=== PATIENT | female | born 1980 | race Caucasian/White ===

== ENCOUNTER 2019-05-18 08:12 | Emergency (ER) | payer MEDICAID ==
[2019-05-18] MEDS ORDERED: Ativan 2 MG/1 ML VIAL IV ONE (08:32)
[2019-05-18] MEDS ORDERED: Sodium Chloride 0.9% 1000 ML 1,000 ML IV STA (08:32)
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
[2019-05-18 08:58] LABS: BASOPHIL % 0.1 % (0.0-0.4); Basophil (Absolute #) 0.01 (0-0.4); Eosinophil % 0.8 % (0.00-5.0); Eosinophil (Absolute #) 0.08 (0-0.5); Granulocyte Absolute (ANC) 8.01 (1.4-6.9); Granulocytes % 83.4 % (36.0-66.0); Hemoglobin 13.9 gm/dl (12.0-16.0); Lymphocyte (Absolute #) 1.14 (1.0-4.6); Lymphocytes % 11.9 % (24.0-44.0); Mean Cell Volume 96.3 fl (78-100); Mean Corpuscular Hemoglobin 31.9 pg (26-32); Mean Corpuscular Hgb Concent. 33.1 g/dl (32-36); Mean Platelet Volume 10.9 fl (6-9.5); Monocyte (Absolute #) 0.36 (0.0-1.3); Monocytes % 3.8 % (0.0-12.0); Platelet Count 246 K/mm3 (150-450); Red Blood Count 4.36 M/mm3 (4.1-5.4); Red Cell Distribution Width 12.6 % (11.5-14.0); White Blood Count 9.6 K/mm3 (4.0-10.5)
[2019-05-18 09:13] LABS: ALBUMIN 4.8 g/dL (3.5-5.0); ALKALINE PHOSPHATASE 63 U/L (38-126); ANION GAP 16.1 MEQ/L (5-15); BLOOD UREA NITROGEN 21 mg/dL (7-17); CHLORIDE 102 mmol/L (98-107); Carbon Dioxide 25 mmol/L (22-30); Creatinine 1 0.63 mg/dL (0.52-1.04); Glucose 100 mg/dL (74-106); Potassium 3.8 mmol/L (3.5-5.1); SGOT/AST 21 U/L (14-36); SGPT/ALT 18 U/L (0-35); SODIUM 140 mmol/L (137-145); Total Protein 8.3 g/dL (6.3-8.2)
[2019-05-18 09:15] LABS: Amourphous Crystal MODERATE /HPF (NEGATIVE); Appearance CLOUDY (CLEAR); Bacteria FEW /HPF (NEGATIVE); Bilirubin NEGATIVE (NEGATIVE); Blood NEGATIVE Ery/ul (0-5); Epithelial Cells RARE /HPF (FEW); Glucose NEGATIVE (NEGATIVE); Ketones NEGATIVE (NEGATIVE); Leukocyte Esterase NEGATIVE (NEGATIVE); Mucus SLIGHT /HPF (NEGATIVE); Nitrite NEGATIVE (NEGATIVE); Protein,Urine Dip NEGATIVE (Negative); Specific Gravity 1.021 (1.005-1.025); Urobilinogen NEGATIVE mg/dL (0-1)
[2019-05-18 09:16] LABS: ACETAMINOPHEN < 10 ug/ml (10-30); ETHYL ALCOHOL < 10 mg/dL (0-10); SALICYLATE < 1.0 mg/dL (2-20)
[2019-05-18] MEDS ORDERED: Ativan 2 MG/1 ML VIAL ONE (09:20)
[2019-05-18 09:24] LABS: Barbiturate,Urine NEGATIVE (NEGATIVE); Benzodiazepine,Urine POSITIVE (NEGATIVE); Cocaine,Urine NEGATIVE (NEGATIVE); Methadone,Urine NEGATIVE (NEGATIVE); Opiate,Urine POSITIVE (NEGATIVE); PCP,Urine NEGATIVE (NEGATIVE); THC,Urine NEGATIVE (NEGATIVE)
[2019-05-18 09:47] LABS: Amphetamine,Urine POSITIVE (NEGATIVE)
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
[2019-05-18 13:09] VITALS: BP 98/68; PULSE 90; O2SAT 100
== END 2019-05-18 13:34 | disposition short-term general hospital (02) ==
LOC: ED 08:12
DX: F19.20 Other psychoactive substance dependence, uncomplicated (principal); S16.1XXA Strain of muscle, fascia and tendon at neck level, initial encounter; V89.2XXA Person injured in unspecified motor-vehicle accident, traffic, initial encounter; N39.0 Urinary tract infection, site not specified
CPT/HCPCS: 36415; 72040; 80053; 80307; 81001; 81025; 85025; 87086; 93005; 96372; 99285; G0481; J2060; G0480

== ENCOUNTER 2022-01-20 16:00 | Emergency (ER) | payer MEDICAID ==
[2022-01-20 16:17] VITALS: BP 117/81; PULSE 77; O2SAT 98
[2022-01-20] MEDS ORDERED: TORAdol 30 mg Injection IM ONE (16:17)
[2022-01-20] MEDS ORDERED: TORAdol 30 mg Injection ONE (16:19)
--- NOTE | 2022-01-20 16:22 | ERPHSYRPT ---
- History of Present Illness Time Seen by Provider: 01/20/22 16:18 Source: patient Exam Limitations: no limitations Patient Subjective Stated Complaint: L shoulder pain that radiates through R side Triage Nursing Assessment: pt to ED c/o L shoulder pain x 2 days. pt states she was resting in bed when pain began. states pain originates deep into shoulder and radiates through R side. rates 7/10. full ROM however does have pain. Physician History: Left shoulder pain that radiates through R side L shoulder pain x 2 days. pt states she was resting in bed when pain began. states pain originates deep into shoulder and radiates through R side. rates 7/10. full ROM however does have pain. Occurred: yesterday Method of Injury: unknown Quality: constant Severity of Pain-Max: moderate Severity of Pain-Current: moderate Extremities Pain Location: shoulder: left Modifying Factors: Improves With: nothing Associated Symptoms: none Allergies/Adverse Reactions: No Known Drug Allergies Allergy (Verified 01/20/22 16:09) Home Medications: Buprenorphine HCl/Naloxone HCl [Suboxone 12 mg-3 mg Sl Film] 2 each SL DAILY 01/20/22 [History] Hx Tetanus, Diphtheria Vaccination/Date Given: Yes Hx Influenza Vaccination/Date Given: Yes Hx Pneumococcal Vaccination/Date Given: No Immunizations Up to Date: Yes Travel Risk - International Travel Have you traveled outside of the country in past 3 weeks: No - Coronavirus Screening Are you exhibiting any of the following symptoms?: No Close contact with a COVID-19 positive Pt in past 14-21 Days: No - Vaccine Status Have you recieved a Covid-19 vaccination: No - Review of Systems Constitutional: No Symptoms Eyes: No Symptoms Ears, Nose, & Throat: No Symptoms Respiratory: No Symptoms Cardiac: Chest Pain Abdominal/Gastrointestinal: No Symptoms Genitourinary Symptoms: No Symptoms Musculoskeletal: Joint Pain (left shoulder pain), No Fall Skin: No Symptoms Neurological: No Symptoms Psychological: No Symptoms - Past Medical History Pertinent Past Medical History: Yes Psycho-Social History: Anxiety, Other - Past Surgical History Past Surgical History: Yes Female Surgical History: Other Other Surgical History: laparotomy - Social History Smoking Status: Former smoker How long have you smoked: 20 years Exposure to second hand smoke: Yes Drug Use: none Patient Lives Alone: No - Female History Hx Now: No - Nursing Vital Signs Nursing Vital Signs: Initial Vital Signs Temperature 97.7 F 01/20/22 16:10 Pulse Rate 77 01/20/22 16:10 Respiratory Rate 20 01/20/22 16:10 Blood Pressure 117/81 01/20/22 16:10 O2 Sat by Pulse Oximetry 98 01/20/22 16:10 Pain Scale Pain Intensity 7 - Physical Exam General Appearance: no apparent distress Eyes, Ears, Nose, Throat Exam: normal ENT inspection Neck Exam: normal inspection Cardiovascular/Respiratory Exam: chest non-tender Abdominal Exam: non-tender Back Exam: normal inspection Shoulder Exam: normal inspection, normal ROM, pain, soft tissue tenderness, No no evidence of injury, No deformity, No ecchymosis SpO2: 98 - Course Nursing assessment & vital signs reviewed: Yes - Radiology Exams Shoulder X-ray Interpretation: Reviewed by me, Negative, No Fracture, No Subluxation Ordered Tests: Active Orders 24 hr Category Date Time Status EKG-ER Only STAT Care 01/20/22 16:16 Active SHOULDER Stat Exams 01/20/22 16:17 Taken Medication Summary Discontinued Medications Generic Name Dose Route Start Last Admin Trade Name Nieves PRN Reason Stop Dose Admin Ketorolac Tromethamine 60 mg 01/20/22 16:17 01/20/22 16:22 Ketorolac Tromethamine 30 Mg/Ml Inj IM 01/20/22 16:18 60 mg STAT ONE Administration Ketorolac Tromethamine Confirm 01/20/22 16:19 Ketorolac Tromethamine 30 Mg/Ml Inj Administered 01/20/22 16:20 Dose 60 mg .ROUTE .STK-MED ONE - Progress Progress: improved Counseled pt/family regarding: diagnosis, need for follow-up, rad results - Departure Departure Disposition: Home Clinical Impression: Left shoulder strain Qualifiers: Encounter type: initial encounter Qualified Code(s): S46.912A - Strain of unspecified muscle, fascia and tendon at shoulder and upper arm level, left arm, initial encounter Condition: Stable Critical Care Time: No Referrals: DOCTOR,NO FAMILY [Primary Care Provider] - Follow up/PCP as directed Instructions: Shoulder Sprain (DC) Additional Instructions: Discharge/Care Plan MANASCOOPER Kita was seen on 01/20/22 in the Emergency Room. The patient was counseled regarding Diagnosis,Lab results, Imaging studies, need for follow up and when to return to the Emergency Room. Prescriptions given: Discharge Note I have spoken with the patient and/or caregivers. I have explained the patient's condition, diagnosis and treatment plan based on the information available to me at this time. I have answered the patient's and/or caregiver's questions and addressed any concerns. The patient and/or caregivers have as good understanding of the patient's diagnosis, condition and treatment plan as can be expected at this point. The vital signs have been stable. The patient's condition is stable and appropriate for discharge from the emergency department. The patient will pursue further outpatient evaluation with the primary care physician or other designated or consulting physician as outlined in the discharge instructions. The patient and/or caregivers are agreeable to this plan of care and follow-up instructions have been explained in detail. The patient and/or caregivers have received these instruction. The patient/and or caregivers are aware that any significant change in condition or worsening of symptoms should prompt an immediate return to this or the closest emergency department or call 911. MANASCOOPER Kita was seen on 01/20/22 n the Emergency Room. At that time you were treated for an emergent condition, during your visit Laboratory, Radiology and/or other procedures may have been ordered. It is very important that you follow-up with your Primary Care Physician NO FAMILY DOCTOR within the next 24- 48 hours to review your Emergency Room visit and the final results of testing that was ordered. Some test results such as Urine Cultures, Blood Cultures, and other cultures if ordered will not be finalized for 24-48 hours. If you do not have a Primary Care Provider please call the medical records department at [phone] ext [phone] to obtain a copy of your results or you may sign into our patient portal to obtain these results by visiting us @ [email or web address] and completing the following steps: 1. Click on the Patient Portal link 2. Click the Patient Self Enrollment Link to complete the enrollment form and entering your 3. Once the enrollment form is completed you will receive an email with a temporary ID and password at the email address you provided. 4. Next choose a user name and password. Your user name must be at least 4 characters long and your password must be at least 4 characters long. 5. Choose a security question from the list and provide your answer to the question. If you already have signed into the Health Portal you may access your Health Care Information 03/06 by the following steps: 1. Login to our website @ [email or web address] 2. Enter your original user name and password. FAQS The [facility] Health Portal is an online tool that contains your Lab Results, Radiology Reports, Visit History, Discharge Instructions and Health Summary Lab and Radiology Results will not be available for 72 hours on the portal. The Portal is a secure site, passwords are encryted and URLs are re-written so they cannot be copied and pasted. You and authorized family members are the only ones who can access your Portal. Also there is a timeout feature that protects your information if you leave the Portal page open. If you have technical difficulty please use the Contact Us link on the page this will allow you to submit any questions you have regarding the Portal or you may contact the Medical Record Department at [phone] ext [phone].
--- NOTE | 2022-01-20 20:12 | XRAY ---
Indication: Pain 2 days. No known injury. Comparison: None 3 view left shoulder obtained. No bony, articular, or soft tissue abnormalities.
== END 2022-01-20 16:47 | disposition home or self-care (01) ==
LOC: ED 16:00
DX: S46.912A Strain of unspecified muscle, fascia and tendon at shoulder and upper arm level, left arm, initial encounter (principal); Z79.891 Long term (current) use of opiate analgesic
CPT/HCPCS: 73030; 93005; 96372; 99284; J1885

== ENCOUNTER 2022-04-23 09:29 | Emergency (ER) | payer OTHER ==
--- NOTE | 2022-04-23 09:34 | ERPHSYRPT ---
- History of Present Illness Time Seen by Provider: 04/23/22 09:34 Source: patient Exam Limitations: no limitations Physician History: This 42-year-old white female who has a tender, fractured right lower molar. There is significant tenderness present. She can see her dentist for 2 weeks. She has not had a fever. Timing/Duration: abrupt onset ENT Location: dental Prearrival Treatment: over the counter meds Modifying Factors: Improves With: nothing Associated Symptoms: tooth pain Allergies/Adverse Reactions: No Known Drug Allergies Allergy (Verified 04/23/22 09:45) Home Medications: Buprenorphine HCl/Naloxone HCl [Buprenorphin-Naloxon 8-2 mg Sl] 3 each SL QAM 04/23/22 [History] Hx Tetanus, Diphtheria Vaccination/Date Given: Yes Hx Influenza Vaccination/Date Given: Yes Hx Pneumococcal Vaccination/Date Given: No Travel Risk - International Travel Have you traveled outside of the country in past 3 weeks: No - Coronavirus Screening Are you exhibiting any of the following symptoms?: No Close contact with a COVID-19 positive Pt in past 14-21 Days: No - Vaccine Status Have you recieved a Covid-19 vaccination: No - Review of Systems Constitutional: No Symptoms Eyes: No Symptoms Ears, Nose, & Throat: Other Respiratory: No Symptoms Cardiac: No Symptoms Abdominal/Gastrointestinal: No Symptoms Genitourinary Symptoms: No Symptoms Musculoskeletal: No Symptoms Skin: No Symptoms Neurological: No Symptoms Psychological: No Symptoms Endocrine: No Symptoms Hematologic/Lymphatic: No Symptoms Immunological/Allergic: No Symptoms All Other Systems: Reviewed and Negative - Past Medical History Pertinent Past Medical History: Yes Psycho-Social History: Anxiety, Other - Past Surgical History Past Surgical History: Yes Female Surgical History: Other Other Surgical History: laparotomy - Social History Smoking Status: Former smoker How long have you smoked: 20 years Exposure to second hand smoke: Yes Drug Use: none Patient Lives Alone: No - Nursing Vital Signs Nursing Vital Signs: Initial Vital Signs Temperature 98.3 F 04/23/22 09:37 Pulse Rate 83 04/23/22 09:37 Blood Pressure 113/55 04/23/22 09:37 O2 Sat by Pulse Oximetry 96 04/23/22 09:37 Pain Scale Pain Intensity 8 - Physical Exam General Appearance: no apparent distress, alert, anxiety Eye Exam: bilateral eye: normal inspection, PERRL, EOMI Ear Exam: bilateral ear: auricle normal Nasal Exam: normal inspection Throat Exam: dental tenderness (Right lower molar fracture with tenderness) Neck Exam: normal inspection, non-tender, supple, full range of motion Cardiovascular/Respiratory Exam: chest non-tender, no respiratory distress Abdominal Exam: non-tender Neurologic Exam: alert, oriented x 3, cooperative, 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, normal mood/affect, nml cerebellar function, nml station & gait, sensation nml Skin Exam: normal color, warm, dry SpO2 Interpretation: normal O2 Delivery: Room Air Ordered Tests: Medication Summary Generic Name Dose Route Start Last Admin Trade Name Freq PRN Reason Stop Dose Admin Amoxicillin 500 mg 04/23/22 10:09 Amoxicillin Trihydrate 500 Mg Capsule PO 04/23/22 10:10 STAT ONE - Progress Progress: unchanged Counseled pt/family regarding: diagnosis, need for follow-up - Departure Departure Disposition: Home Clinical Impression: Pain, dental, Fractured tooth Condition: Stable Critical Care Time: No Referrals: DOCTOR,NO FAMILY [Primary Care Provider] - Follow up/PCP as directed Additional Instructions: Add Tylenol for pain control. Follow-up with a dentist for definitive care. Take your antibiotics as prescribed. Prescriptions: Amoxicillin 500 mg Cap [Amoxil 500 mg] 500 mg PO TID #30 cap Naproxen 500 mg [Naprosyn 500 MG] 500 mg PO BID #10 tablet
[2022-04-23] MEDS ORDERED: AMOXIL 500 MG PO ONE (10:09)
[2022-04-23] MEDS ORDERED: AMOXIL 500 MG ONE (10:12)
[2022-04-23 10:20] VITALS: BP 110/54; PULSE 76; O2SAT 95
== END 2022-04-23 10:20 | disposition home or self-care (01) ==
LOC: ED 09:29
DX: S02.5XXA Fracture of tooth (traumatic), initial encounter for closed fracture (principal); Z79.891 Long term (current) use of opiate analgesic; Z28.310 Unvaccinated for COVID-19
CPT/HCPCS: 99283; A9270-GY

== ENCOUNTER 2022-06-07 00:03 | Emergency (ER) | payer OTHER ==
[2022-06-07] MEDS ORDERED: Zofran 4 MG/2 ML VIAL IV ONE (00:25)
--- NOTE | 2022-06-07 00:30 | ERPHSYRPT ---
- History of Present Illness Historian: patient Exam Limitations: no limitations Patient Subjective Stated Complaint: pt states she has been having chest tightness tonight. states pain started in her back between her shoulder blades earlier tonight. rates 8/10 at this time Triage Nursing Assessment: pt alert and oriented, answers questions approp. pt ambulatory with steady giat noted. respirations nonlabored. skin pink warm and dry. frequent belching noted. Physician History: 42 yo wf w 90min h/o intrascapular pain which transitioned into chest pain. Pain described as "tightness" and 5/10. She states that she is dyspneic wo N/V/diaphoresis. Nothing makes the pain better or worse. Pt vapes but denies CAD-OH/HTN/DM/Hyperlipidemia. She had CV19 2 wks ago. Timing/Duration: other (90min) Activities at Onset: rest Quality: tightness Location: substernal, back Chest Pain Radiation: back Severity of Pain-Max: moderate Severity of Pain-Current: moderate Modifying Factors: Improves With: nothing Associated Symptoms: shortness of breath, back pain, No nausea, No vomiting, No palpitations, No heartburn, No abdominal pain, No cough, No hurts to breathe, No diaphoresis, No chills, No fever, No fatigue, No weakness, No swelling/lump in chest, No syncope, No rash, No headache, No dizziness, No edema Prior Chest Pain/Cardiac Workup: no prior chest pain Nitro Today/Relief: no nitro taken today Aspirin Treatment Today: no aspirin today Allergies/Adverse Reactions: No Known Drug Allergies Allergy (Verified 06/07/22 00:21) Home Medications: Buprenorphine HCl/Naloxone HCl [Buprenorphin-Naloxon 8-2 mg Sl] 3 each SL QAM 04/23/22 [History] Hx Tetanus, Diphtheria Vaccination/Date Given: Yes Hx Influenza Vaccination/Date Given: Yes Hx Pneumococcal Vaccination/Date Given: No Immunizations Up to Date: Yes Travel Risk - International Travel Have you traveled outside of the country in past 3 weeks: No - Coronavirus Screening Are you exhibiting any of the following symptoms?: No Close contact with a COVID-19 positive Pt in past 14-21 Days: No - Vaccine Status Have you recieved a Covid-19 vaccination: No - Review of Systems Constitutional: No Symptoms Eyes: No Symptoms Ears, Nose, & Throat: No Symptoms Respiratory: No Symptoms, Dyspnea Cardiac: No Symptoms, Chest Pain Abdominal/Gastrointestinal: No Symptoms Genitourinary Symptoms: No Symptoms Musculoskeletal: No Symptoms Skin: No Symptoms Neurological: No Symptoms Psychological: No Symptoms Endocrine: No Symptoms Hematologic/Lymphatic: No Symptoms Immunological/Allergic: No Symptoms - Past Medical History Pertinent Past Medical History: Yes Psycho-Social History: Anxiety, Other - Past Surgical History Past Surgical History: Yes Female Surgical History: Other Other Surgical History: laparotomy - Social History Smoking Status: Former smoker How long have you smoked: 20 years Exposure to second hand smoke: Yes Drug Use: marijuana Patient Lives Alone: No Significant Family History: no pertinent family hx - Female History Hx Last Menstrual Period: 3 weeks Hx Now: No - Nursing Vital Signs Nursing Vital Signs: Initial Vital Signs Temperature 97.2 F 06/07/22 00:04 Pulse Rate 100 H 06/07/22 00:04 Respiratory Rate 18 06/07/22 00:04 Blood Pressure 120/72 06/07/22 00:04 O2 Sat by Pulse Oximetry 100 06/07/22 00:04 Pain Scale Pain Intensity 2 Borderline tachycardic - Physical Exam General Appearance: no apparent distress Eye Exam: PERRL/EOMI, eyes nml inspection Ears, Nose, Throat Exam: normal ENT inspection, TMs normal, pharynx normal, moist mucous membranes Neck Exam: normal inspection, non-tender, supple, full range of motion, No meningismus, No mass, No Brudzinski, No Kernig's, No carotid bruit Respiratory Exam: normal breath sounds, lungs clear, airway intact, No chest tenderness, No respiratory distress Cardiovascular Exam: regular rate/rhythm, normal heart sounds, normal peripheral pulses, capillary refill <2 sec, No murmur Gastrointestinal/Abdomen Exam: soft, normal bowel sounds, No tenderness Back Exam: normal inspection, normal range of motion, No CVA tenderness, No vertebral tenderness Extremity Exam: normal inspection, normal range of motion Neurologic Exam: alert, oriented x 3, cooperative, 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, normal mood/affect, nml cerebellar function, nml station & gait, sensation nml, No motor deficits, No sensory deficit Skin Exam: normal color, warm, dry, No rash Lymphatic Exam: No adenopathy SpO2 Interpretation: normal SpO2: 100 O2 Delivery: Room Air - Course Nursing assessment & vital signs reviewed: Yes EKG Interpreted by Me: RATE (NSR/Rate88/Normal Qt-QTc/No acute ST changes) - Radiology Exams Chest X-ray Interpretation: Interpreted by me (CXR nad) Ordered Tests: Active Orders 24 hr Category Date Time Status EKG-ER Only STAT Care 06/07/22 00:16 Completed CHEST 1 VIEW (PORTABLE) Stat Exams 06/07/22 00:16 Taken AMYLASE Stat Lab 06/07/22 00:55 Completed CBC W DIFF Stat Lab 06/07/22 00:55 Completed CMP Stat Lab 06/07/22 00:55 Completed D-DIMER QUANTITATIVE Stat Lab 06/07/22 00:55 Completed LIPASE Stat Lab 06/07/22 00:55 Completed PROTIME WITH INR Stat Lab 06/07/22 00:55 Completed PTT Stat Lab 06/07/22 00:55 Completed TROPONIN Q3H Lab 06/07/22 00:55 Completed TROPONIN Q3H Lab 06/07/22 02:43 Completed Medication Summary Discontinued Medications Generic Name Dose Route Start Last Admin Trade Name Nieves PRN Reason Stop Dose Admin Fentanyl Citrate 100 mcg 06/07/22 00:24 06/07/22 00:57 Fentanyl Citrate 100 Mcg/2 Ml* Vial IV 06/07/22 00:25 Not Given STAT ONE Fentanyl Citrate Confirm 06/07/22 00:49 Fentanyl Citrate 100 Mcg/2 Ml* Vial Administered 06/07/22 00:50 Dose 100 mcg .ROUTE .STK-MED ONE Ketorolac Tromethamine 15 mg 06/07/22 01:27 06/07/22 01:29 Ketorolac Tromethamine 30 Mg/Ml Inj IV 06/07/22 01:28 15 mg STAT ONE Administration Ketorolac Tromethamine Confirm 06/07/22 01:29 Ketorolac Tromethamine 30 Mg/Ml Inj Administered 06/07/22 01:30 Dose 30 mg .ROUTE .STK-MED ONE Lorazepam 1 mg 06/07/22 01:39 06/07/22 01:43 Lorazepam 1 Mg Tablet PO 06/07/22 01:40 1 mg STAT ONE Administration Lorazepam Confirm 06/07/22 01:41 Lorazepam 1 Mg Tablet Administered 06/07/22 01:42 Dose 1 mg .ROUTE .STK-MED ONE Ondansetron HCl 4 mg 06/07/22 00:25 06/07/22 00:52 Ondansetron Hcl 4 Mg/2 Ml Vial IV 06/07/22 00:26 4 mg STAT ONE Administration Ondansetron HCl Confirm 06/07/22 00:49 Ondansetron Hcl 4 Mg/2 Ml Vial Administered 06/07/22 00:50 Dose 4 mg .ROUTE .STK-MED ONE Lab/Rad Data: Laboratory Result Diagrams 06/07/22 00:55 06/07/22 00:55 Laboratory Results 06/07/22 06/07/22 06/07/22 Range/Units 02:43 00:55 00:55 WBC (4.0-10.5) x10^3/uL RBC (4.1-5.4) x10^6/uL Hgb (12.0-16.0) g/dL Hct (35-47) % MCV (78-100) fL MCH (26-32) pg MCHC (32-36) g/dL RDW (11.5-14.0) % Plt Count (150-450) x10^3/uL MPV (7.5-11.0) fL Gran % (36.0-66.0) % Immature Gran % (Auto) (0.00-0.4) % Nucleat RBC Rel Count (0.00-0.1) % Eos # (Auto) (0-0.5) x10^3/uL Immature Gran # (Auto) (0.00-0.03) x10^3u/L Absolute Lymphs (auto) (1.0-4.6) x10^3/uL Absolute Monos (auto) (0.0-1.3) x10^3/uL Absolute Nucleated RBC (0.00-0.01) x10^3u/L Lymphocytes % (24.0-44.0) % Monocytes % (0.0-12.0) % Eosinophils % (0.00-5.0) % Basophils % (0.0-0.4) % Absolute Granulocytes (1.4-6.9) x10^3/uL Basophils # (0-0.4) x10^3/uL PT 10.5 (9.4-12.5) SECONDS INR 0.99 (0.8-3.0) APTT 28.0 (25.1-36.5) SECONDS D-Dimer 0.27 (0.0-0.50) mg/L Sodium (137-145) mmol/L Potassium (3.5-5.1) mmol/L Chloride (98-107) mmol/L Carbon Dioxide (22-30) mmol/L Anion Gap (5-15) MEQ/L BUN (7-17) mg/dL Creatinine (0.52-1.04) mg/dL Estimated GFR ML/MIN Glucose (74-106) mg/dL Calcium (8.4-10.2) mg/dL Total Bilirubin (0.2-1.3) mg/dL AST (14-36) U/L ALT (0-35) U/L Alkaline Phosphatase (38-126) U/L Troponin I < 0.012 < 0.012 (0.000-0.034) ng/mL Serum Total Protein (6.3-8.2) g/dL Albumin (3.5-5.0) g/dL Amylase (30-110) U/L Lipase (23-300) U/L 06/07/22 06/07/22 Range/Units 00:55 00:55 WBC 5.9 (4.0-10.5) x10^3/uL RBC 4.15 (4.1-5.4) x10^6/uL Hgb 13.2 (12.0-16.0) g/dL Hct 40.3 (35-47) % MCV 97.1 (78-100) fL MCH 31.8 (26-32) pg MCHC 32.8 (32-36) g/dL RDW 12.2 (11.5-14.0) % Plt Count 218 (150-450) x10^3/uL MPV 10.0 (7.5-11.0) fL Gran % 53.2 (36.0-66.0) % Immature Gran % (Auto) 0.2 (0.00-0.4) % Nucleat RBC Rel Count 0.0 (0.00-0.1) % Eos # (Auto) 0.12 (0-0.5) x10^3/uL Immature Gran # (Auto) 0.01 (0.00-0.03) x10^3u/L Absolute Lymphs (auto) 2.34 (1.0-4.6) x10^3/uL Absolute Monos (auto) 0.26 (0.0-1.3) x10^3/uL Absolute Nucleated RBC 0.00 (0.00-0.01) x10^3u/L Lymphocytes % 39.9 (24.0-44.0) % Monocytes % 4.4 (0.0-12.0) % Eosinophils % 2.0 (0.00-5.0) % Basophils % 0.3 (0.0-0.4) % Absolute Granulocytes 3.12 (1.4-6.9) x10^3/uL Basophils # 0.02 (0-0.4) x10^3/uL PT (9.4-12.5) SECONDS INR (0.8-3.0) APTT (25.1-36.5) SECONDS D-Dimer (0.0-0.50) mg/L Sodium 137 (137-145) mmol/L Potassium 3.5 (3.5-5.1) mmol/L Chloride 103 (98-107) mmol/L Carbon Dioxide 25 (22-30) mmol/L Anion Gap 12.2 (5-15) MEQ/L BUN 25 H (7-17) mg/dL Creatinine 0.64 (0.52-1.04) mg/dL Estimated GFR > 60.0 ML/MIN Glucose 95 (74-106) mg/dL Calcium 9.5 (8.4-10.2) mg/dL Total Bilirubin 0.20 (0.2-1.3) mg/dL AST 24 (14-36) U/L ALT 16 (0-35) U/L Alkaline Phosphatase 55 (38-126) U/L Troponin I (0.000-0.034) ng/mL Serum Total Protein 7.4 (6.3-8.2) g/dL Albumin 4.2 (3.5-5.0) g/dL Amylase 59 (30-110) U/L Lipase 61 (23-300) U/L - Progress Progress Note: 06/07/22 01:28 Pt refused IV Fentanyl/Zofran 06/07/22 03:31 15mg IV Toradol 1mg po Ativan Pain greatly improved 06/07/22 03:32 Heart score 1 Counseled pt/family regarding: lab results, diagnosis, need for follow-up, rad results - Departure Departure Disposition: Home Clinical Impression: Chest pain Condition: Stable Critical Care Time: No Referrals: DOCTOR,NO FAMILY [Primary Care Provider] - Follow up/PCP as directed Instructions: Chest Pain (DC) Additional Instructions: Follow up with your family MD in 1-2 days Return to ER for increasing pain or shortness of breath Forms: Work/School Release Form
[2022-06-07] MEDS ORDERED: Zofran 4 MG/2 ML VIAL ONE (00:49)
[2022-06-07] MEDS ORDERED: SUBLIMAZE 100 MCG/2 ML ONE (00:49)
[2022-06-07] MEDS: SUBLIMAZE 100 MCG/2 ML IV ONE ×2 (00:53→00:57)
[2022-06-07 01:03] LABS: Absolute Neutrophil Ct (ANC) 3.12 x10^3/uL (1.4-6.9); Basophil (Absolute #) 0.02 x10^3/uL (0-0.4); Eosinophil (Absolute #) 0.12 x10^3/uL (0-0.5); Hematocrit 40.3 % (35-47); Hemoglobin 13.2 g/dL (12.0-16.0); Lymphocyte (Absolute #) 2.34 x10^3/uL (1.0-4.6); Lymphocytes % 39.9 % (24.0-44.0); Mean Cell Volume 97.1 fL (78-100); Mean Corpuscular Hemoglobin 31.8 pg (26-32); Mean Corpuscular Hgb Concent. 32.8 g/dL (32-36); Monocyte (Absolute #) 0.26 x10^3/uL (0.0-1.3); Monocytes % 4.4 % (0.0-12.0); Neutrophil % 53.2 % (36.0-66.0); Platelet Count 218 x10^3/uL (150-450); Red Blood Count 4.15 x10^6/uL (4.1-5.4); Red Cell Distribution Width 12.2 % (11.5-14.0); White Blood Count 5.9 x10^3/uL (4.0-10.5)
[2022-06-07 01:18] LABS: ALBUMIN 4.2 g/dL (3.5-5.0); ALKALINE PHOSPHATASE 55 U/L (38-126); AMYLASE 59 U/L (30-110); ANION GAP 12.2 MEQ/L (5-15); BLOOD UREA NITROGEN 25 mg/dL (7-17); CHLORIDE 103 mmol/L (98-107); Calcium 9.5 mg/dL (8.4-10.2); Carbon Dioxide 25 mmol/L (22-30); Creatinine 1 0.64 mg/dL (0.52-1.04); EST GLOMERULAR FILTRATION RATE > 60.0 ML/MIN; Glucose 95 mg/dL (74-106); LIPASE 61 U/L (23-300); Potassium 3.5 mmol/L (3.5-5.1); SGOT/AST 24 U/L (14-36); SGPT/ALT 16 U/L (0-35); SODIUM 137 mmol/L (137-145); Total Protein 7.4 g/dL (6.3-8.2)
[2022-06-07 01:20] LABS: D-DIMER QUANTITATIVE 0.27 mg/L (0.0-0.50); INR 0.99 (0.8-3.0); PROTIME 10.5 SECONDS (9.4-12.5)
[2022-06-07] MEDS ORDERED: TORAdol 30 mg Injection IV ONE (01:27)
[2022-06-07] MEDS ORDERED: TORAdol 30 mg Injection ONE (01:29)
[2022-06-07] MEDS ORDERED: Ativan 1 MG PO ONE (01:39)
[2022-06-07] MEDS ORDERED: Ativan 1 MG ONE (01:41)
[2022-06-07 03:54] VITALS: BP 112/72; PULSE 91
[2022-06-07 04:16] VITALS: O2SAT 100
--- NOTE | 2022-06-07 09:07 | XRAY ---
Indication: Chest pain. Comparison: None Portable apical lordotic chest demonstrates normal heart, lungs, and bony thorax.
== END 2022-06-07 03:52 | disposition home or self-care (01) ==
LOC: ED 00:03
DX: R07.9 Chest pain, unspecified (principal); R06.00 Dyspnea, unspecified; Z79.891 Long term (current) use of opiate analgesic; Z28.310 Unvaccinated for COVID-19; Z86.16 Personal history of COVID-19
CPT/HCPCS: 36000; 36415; 71045; 80053; 82150; 83690; 84484; 85025; 85379; 85610; 85730; 93005; 96374; 96375; 99284; J1885; J2405; J3010; A9270-GY

== ENCOUNTER 2022-10-21 15:14 | Emergency (ER) | payer OTHER ==
[2022-10-21] MEDS ORDERED: Sodium Chloride 0.9% 1000 ML 1,000 ML IV STA (15:31)
--- NOTE | 2022-10-21 15:46 | ERPHSYRPT ---
- History of Present Illness Time Seen by Provider: 10/21/22 15:41 Historian: patient Physician History: Patient came to the emergency room with complaining low back pain bilateral flank pain suprapubic abdominal pain for few weeks. Patient denies any other symptoms. Patient has been on Suboxone therapy for her heroin addiction. Timing/Duration: day(s) Quality: pressure Abdominal Pain Onset Location: suprapubic, flank Pain Radiation: no radiation Severity of Pain-Max: moderate Severity of Pain-Current: moderate Modifying Factors: Improves With: nothing Associated Symptoms: denies symptoms Previous symptoms: no prior history Allergies/Adverse Reactions: No Known Drug Allergies Allergy (Verified 06/07/22 00:21) Home Medications: Buprenorphine HCl/Naloxone HCl [Buprenorphin-Naloxon 8-2 mg Sl] 3 each SL QAM 04/23/22 [History] Hx Tetanus, Diphtheria Vaccination/Date Given: Yes Hx Influenza Vaccination/Date Given: Yes Hx Pneumococcal Vaccination/Date Given: No Travel Risk - Vaccine Status Have you recieved a Covid-19 vaccination: No - Review of Systems Constitutional: No Fever, No Chills Eyes: No Symptoms Ears, Nose, & Throat: No Symptoms Respiratory: No Cough, No Dyspnea Cardiac: No Chest Pain, No Edema, No Syncope Abdominal/Gastrointestinal: Abdominal Pain, No Nausea, No Vomiting, No Diarrhea Genitourinary Symptoms: No Dysuria Musculoskeletal: No Back Pain, No Neck Pain Skin: No Rash Neurological: No Dizziness, No Focal Weakness, No Sensory Changes Psychological: No Symptoms Endocrine: No Symptoms All Other Systems: Reviewed and Negative - Past Medical History Pertinent Past Medical History: Yes Psycho-Social History: Anxiety, Other - Past Surgical History Past Surgical History: Yes Female Surgical History: Other Other Surgical History: laparotomy - Social History Smoking Status: Former smoker How long have you smoked: 20 years Exposure to second hand smoke: Yes Drug Use: marijuana Patient Lives Alone: No Significant Family History: no pertinent family hx - Female History Hx Now: No - Physical Exam General Appearance: no apparent distress, alert Eye Exam: PERRL/EOMI, eyes nml inspection Ears, Nose, Throat Exam: normal ENT inspection, pharynx normal, moist mucous membranes Neck Exam: normal inspection, non-tender, supple, full range of motion Respiratory Exam: normal breath sounds, lungs clear, No respiratory distress Cardiovascular Exam: regular rate/rhythm, normal heart sounds Gastrointestinal/Abdomen Exam: soft, No tenderness, No mass Back Exam: normal inspection, normal range of motion, No CVA tenderness, No vertebral tenderness Extremity Exam: normal inspection, normal range of motion, pelvis stable Neurologic Exam: alert, oriented x 3, cooperative, normal mood/affect, nml cerebellar function, sensation nml, No motor deficits Skin Exam: normal color, warm, dry - Course Nursing assessment & vital signs reviewed: Yes Ordered Tests: Active Orders 24 hr Category Date Time Status ABDOMEN AND PELVIS W/0 CONTRAS [CT] Stat Exams 10/21/22 15:32 Ordered AMYLASE Stat Lab 10/21/22 15:31 Ordered BLOOD CULTURE Stat Lab 10/21/22 15:31 Ordered CBC W DIFF Stat Lab 10/21/22 15:31 Ordered CMP Stat Lab 10/21/22 15:31 Ordered CULTURE,URINE Stat Lab 10/21/22 15:31 Ordered LIPASE Stat Lab 10/21/22 15:31 Ordered UA W/RFX CULTURE Stat Lab 10/21/22 Ordered Urine Triage Profile Stat Lab 10/21/22 15:31 Ordered Medication Summary Generic Name Dose Route Start Last Admin Trade Name Freq PRN Reason Stop Dose Admin Sodium Chloride 1,000 mls @ 999 mls/hr 10/21/22 15:31 Sodium Chloride 0.9% 1000 Ml IV 10/21/22 16:31 .Q1H1M STA - Departure Departure Disposition: Left without being seen (left before any labs or other in tervention done) Clinical Impression: Abdominal pain Qualifiers: Abdominal location: generalized Qualified Code(s): R10.84 - Generalized abdominal pain Back pain Qualifiers: Back pain location: back pain in other location Chronicity: chronic Qualified Code(s): M54.9 - Dorsalgia, unspecified; G89.29 - Other chronic pain Condition: Stable Critical Care Time: No Referrals: DOCTOR,NO FAMILY [Primary Care Provider] - Follow up/PCP as directed
== END 2022-10-21 15:41 | disposition left against medical advice (07) ==
LOC: ED 15:14
DX: R10.84 Generalized abdominal pain (principal); G89.29 Other chronic pain; M54.9 Dorsalgia, unspecified; Z79.891 Long term (current) use of opiate analgesic
CPT/HCPCS: G0463

== ENCOUNTER 2023-02-25 12:00 | Emergency (ER) | payer OTHER ==
--- NOTE | 2023-02-25 12:12 | ERPHSYRPT ---
- History of Present Illness Time Seen by Provider: 02/25/23 12:12 Source: patient Exam Limitations: no limitations Physician History: This is a 42-year-old white female who has a history of drug addiction and is on Suboxone at this time and presents with bilateral flank pain. She thinks it is her kidneys. She does have a history of recurrent urinary tract infection. But she also states that she has degenerative disc disease in her lower back. She did not fall or have any trauma to the area. The patient wanted evaluated for urinary tract infection. Patient does state that her lower back feels very tight especially in the mornings but as she gets up and walks and moves around the tightness subsided and the pain improves. Timing/Duration: day(s) (Several days) Method of Injury: other (No injury) Quality: sharp (Bilateral flank area) Back Pain Location: paraspinous muscles Severity of Pain-Max: mild (To moderate) Severity of Pain-Current: mild (To moderate) Associated Symptoms: lower back pain, muscle spasms, No urinary incontinence, No loss of bowel control, No numbness in legs/feet Previous symptoms: same symptoms as today Allergies/Adverse Reactions: No Known Drug Allergies Allergy (Verified 06/07/22 00:21) Home Medications: Buprenorphine HCl/Naloxone HCl [Buprenorphin-Naloxon 8-2 mg Sl] 3 each SL QAM 04/23/22 [History] Hx Tetanus, Diphtheria Vaccination/Date Given: Yes Hx Influenza Vaccination/Date Given: Yes Hx Pneumococcal Vaccination/Date Given: No Travel Risk - International Travel Have you traveled outside of the country in past 3 weeks: No - Coronavirus Screening Are you exhibiting any of the following symptoms?: No Close contact with a COVID-19 positive Pt in past 14-21 Days: No - Vaccine Status Have you recieved a Covid-19 vaccination: No - Review of Systems Constitutional: No Symptoms Eyes: No Symptoms Ears, Nose, & Throat: No Symptoms Respiratory: No Symptoms Cardiac: No Symptoms Abdominal/Gastrointestinal: No Symptoms Genitourinary Symptoms: Flank Pain (Bilateral) Musculoskeletal: Back Pain Skin: No Symptoms Neurological: No Symptoms Psychological: No Symptoms Endocrine: No Symptoms Hematologic/Lymphatic: No Symptoms Immunological/Allergic: No Symptoms All Other Systems: Reviewed and Negative - Past Medical History Pertinent Past Medical History: Yes Psycho-Social History: Anxiety, Other - Past Surgical History Past Surgical History: Yes Female Surgical History: Other Other Surgical History: laparotomy - Social History Smoking Status: Former smoker How long have you smoked: 20 years Exposure to second hand smoke: Yes Drug Use: marijuana Patient Lives Alone: No Significant Family History: no pertinent family hx - Nursing Vital Signs Nursing Vital Signs: Initial Vital Signs Temperature 98.3 F 02/25/23 12:21 Pulse Rate 82 02/25/23 12:21 Respiratory Rate 20 02/25/23 12:21 Blood Pressure 131/69 02/25/23 12:21 O2 Sat by Pulse Oximetry 99 02/25/23 12:21 Pain Scale Pain Intensity [Posterior Back 7 ] Pain Intensity 7 - Physical Exam General Appearance: no apparent distress, alert, anxiety Eye Exam: PERRL/EOMI, eyes nml inspection Ears, Nose, Throat Exam: normal ENT inspection, moist mucous membranes Neck Exam: normal inspection, non-tender, supple, full range of motion Respiratory Exam: lungs clear, airway intact, No chest tenderness, No respiratory distress Gastrointestinal Exam: No tenderness Pelvic Exam: not done Rectal Exam: not done Back Exam: normal inspection, normal range of motion, muscle spasm, No vertebral tenderness Extremity Exam: normal inspection, normal range of motion, pelvis stable Neurologic Exam: alert, oriented x 3, cooperative, 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, normal mood/affect, nml cerebellar function, nml station & gait, sensation nml Skin Exam: normal color, warm, dry Lymphatic Exam: No adenopathy SpO2 Interpretation: normal O2 Delivery: Room Air - Course Nursing assessment & vital signs reviewed: Yes Ordered Tests: Active Orders 24 hr Category Date Time Status UA W/RFX UR CULTURE Stat Lab 02/25/23 12:38 Completed Medication Summary Discontinued Medications Generic Name Dose Route Start Last Admin Trade Name Freq PRN Reason Stop Dose Admin Methylprednisolone Sodium 0 mg 02/25/23 13:36 Succinate 125 mg/ Sterile IM 02/25/23 13:37 Water 2 ml STAT ONE Orphenadrine Citrate 60 mg 02/25/23 13:37 Orphenadrine Citrate 60 Mg/2 Ml Vial IM 02/25/23 13:38 STAT ONE Lab/Rad Data: Laboratory Results 02/25/23 Range/Units 12:38 Urine Color Yellow (Yellow) Urine Appearance Clear (Clear) Urine pH 6.0 (4.6-8.0) Ur Specific [place] 1.015 (1.005-1.030) Urine Protein Negative (Negative) Urine Glucose (UA) Negative (Negative) mg/dL Urine Ketones Negative (Negative) Urine Blood Trace (Negative) Urine Nitrite Negative (Negative) Urine Bilirubin Negative (Negative) Urine Urobilinogen 0.2 (0.2) mg/dL Ur Leukocyte Esterase Negative (Negative) U Hyaline Cast (Auto) NONE SEEN (0-2) /LPF Urine Microscopic RBC 3-5 (0-5) /HPF Urine Microscopic WBC 0-2 (0-5) /HPF Ur Epithelial Cells None Seen (None Seen) /HPF Urine Bacteria None Seen (None Seen) /HPF Urine Culture Reflexed NO (NO) - Progress Progress: pain not gone completely Progress Note: 02/25/23 13:41 This patient's medical issue is 1 of low complexity. The level of complexity in the work-up performed is based on the patient's past medical history, review of the patient's medication list, review of the patient's drug allergy list, history of present illness and physical findings on examination. The work-up performed today was a urinalysis. I do not feel it necessary to expose this patient to radiation from an x-ray when there is a very low likelihood of any type of acute finding such as a fracture or subluxation of the spine since she did not suffer any type of acute trauma. This patient has acute exacerbation of her chronic low back pain. Patient is on Suboxone medication. She does have a history of narcotic abuse. We will provide her with steroids and an muscle relaxant. Patient's urinalysis is free of any infection. Counseled pt/family regarding: lab results, diagnosis, need for follow-up Medical Desision Making - Discussion of managment Agreed on:: Treatment plan, need for follow-up - Diagnostic Testing Diagnostic test were ordered, analyzed, and reviewed by me: Yes - Risk of complications The pt has a mod risk of morbidity or mortality based on: Need for prescription drug management - Departure Departure Disposition: Home Clinical Impression: Acute exacerbation of chronic low back pain Condition: Stable Critical Care Time: No Referrals: DOCTOR,NO FAMILY [Primary Care Provider] - Follow up/PCP as directed Additional Instructions: Take your medication as prescribed. Follow-up with a primary care provider for further evaluation management Prescriptions: Prednisone 10 mg [Deltasone 10 mg] 10 mg PO TID #12 tablet Orphenadrine Citrate 100 mg [Norflex 100 MG Tablet] 100 mg PO BID #10 tab
[2023-02-25 12:49] LABS: Appearance Clear (Clear); Bacteria None Seen /HPF (None Seen); Bilirubin Negative (Negative); Blood Trace (Negative); Epithelial Cells None Seen /HPF (None Seen); Glucose, Urine Negative (Negative); Hyaline Casts NONE SEEN /LPF (0-2); Ketones Negative (Negative); Leukocyte Esterase Negative (Negative); Nitrite Negative (Negative); Protein,Urine Dip Negative (Negative); Specific Gravity 1.015 (1.005-1.030); Urobilinogen 0.2 mg/dL (0.2); WBC 0-2 /HPF (0-5)
[2023-02-25 12:53] LABS: ADD URINE CULTURE? NO (NO)
[2023-02-25] MEDS ORDERED: solu-MEDROL 125 MG, Sterile H2O 10 ml 2 ML IM ONE ×2 (13:36)
[2023-02-25] MEDS ORDERED: Norflex 60 MG/2 ML IM ONE (13:37)
[2023-02-25] MEDS ORDERED: Sterile H2O 10 ml IJ ONE (13:52)
[2023-02-25] MEDS ORDERED: Norflex 60 MG/2 ML ONE (13:53)
[2023-02-25] MEDS ORDERED: solu-MEDROL ONE (13:53)
[2023-02-25 14:03] VITALS: BP 105/65; PULSE 88; O2SAT 98
== END 2023-02-25 14:34 | disposition home or self-care (01) ==
LOC: ED 12:00
DX: G89.29 Other chronic pain (principal); M54.50 Low back pain, unspecified; R10.9 Unspecified abdominal pain; Z79.891 Long term (current) use of opiate analgesic; Z79.52 Long term (current) use of systemic steroids; Z28.310 Unvaccinated for COVID-19
CPT/HCPCS: 81001; 96372; 99283; J2360; J2930

== ENCOUNTER 2023-07-11 23:34 | Emergency (ER) | payer OTHER ==
--- NOTE | 2023-07-11 23:35 | ERPHSYRPT ---
- History of Present Illness Time Seen by Provider: 07/11/23 23:35 Source: patient Exam Limitations: no limitations Physician History: 43-year-old white female patient who has a history of substance abuse and is on Suboxone and presents with dental infection. Patient has multiple sites of dental caries and dental fractures. She has been treated with Augmentin 2 diffe rent times in the last month. She is currently taking her second round of antibiotics of Augmentin which is just a higher dose than the first round of a month ago. Patient has also noticed punctate rash present in several areas of her body. Patient is concerned of possible infection elsewhere. She also feels very weak and tired. She has no chest pain. She has no shortness of breath. Timing/Duration: gradual onset Severity: mild ENT Location: dental Prearrival Treatment: prescription meds Associated Symptoms: tooth pain (Generalized), other (Punctate skin rash), No fever Allergies/Adverse Reactions: No Known Drug Allergies Allergy (Verified 06/07/22 00:21) Home Medications: Buprenorphine HCl/Naloxone HCl [Buprenorphin-Naloxon 8-2 mg Sl] 3 each SL QAM 04/23/22 [History] Amoxicillin/Potassium Clav [Amox-Clav 500-125 mg Tablet] 1 each PO TID 07/12/23 [History] Hx Tetanus, Diphtheria Vaccination/Date Given: Yes Hx Influenza Vaccination/Date Given: Yes Hx Pneumococcal Vaccination/Date Given: No Travel Risk - International Travel Have you traveled outside of the country in past 3 weeks: No - Coronavirus Screening Are you exhibiting any of the following symptoms?: No Close contact with a COVID-19 positive Pt in past 14-21 Days: No - Vaccine Status Have you recieved a Covid-19 vaccination: No - Review of Systems Constitutional: Lethargy (Mild but arousable) Eyes: No Symptoms Ears, Nose, & Throat: Other Respiratory: No Symptoms (Dental pain) Cardiac: No Symptoms Abdominal/Gastrointestinal: No Symptoms Genitourinary Symptoms: No Symptoms Musculoskeletal: No Symptoms Skin: No Symptoms Neurological: No Symptoms Psychological: No Symptoms Endocrine: No Symptoms Hematologic/Lymphatic: No Symptoms Immunological/Allergic: No Symptoms All Other Systems: Reviewed and Negative - Past Medical History Pertinent Past Medical History: Yes Psycho-Social History: Anxiety, Other - Past Surgical History Past Surgical History: Yes Female Surgical History: Other Other Surgical History: laparotomy - Social History Smoking Status: Former smoker How long have you smoked: 20 years Exposure to second hand smoke: Yes Drug Use: marijuana Patient Lives Alone: No Significant Family History: no pertinent family hx - Nursing Vital Signs Nursing Vital Signs: Initial Vital Signs Pulse Rate 82 07/11/23 23:41 Blood Pressure 123/81 07/11/23 23:41 O2 Sat by Pulse Oximetry 100 07/11/23 23:41 Pain Scale Pain Intensity 0 - Physical Exam General Appearance: no apparent distress, anxiety, lethargy (Mild but arousable) Eye Exam: bilateral eye: normal inspection, PERRL, EOMI Ear Exam: bilateral ear: auricle normal Nasal Exam: normal inspection Throat Exam: dental tenderness (Multiple fractured teeth), moist mucus membranes Neck Exam: normal inspection, non-tender, supple, full range of motion, trachea midline Cardiovascular/Respiratory Exam: chest non-tender Abdominal Exam: non-tender Neurologic Exam: alert, oriented x 3, cooperative, senior policy associate II-XII nml as tested, nml cerebellar function, nml station & gait, sensation nml Skin Exam: normal color, warm, dry SpO2 Interpretation: normal O2 Delivery: Room Air - Course Nursing assessment & vital signs reviewed: Yes Ordered Tests: Active Orders 24 hr Category Date Time Status IV Insertion STAT Care 07/12/23 00:04 Active CBC W DIFF Stat Lab 07/12/23 00:13 Completed CMP Stat Lab 07/12/23 00:13 Completed HCG QUALITATIVE, URINE Routine Lab 07/12/23 00:48 Completed Lactic Acid Stat Lab 07/12/23 00:04 Ordered UA W/RFX UR CULTURE Stat Lab 07/12/23 00:13 Completed Medication Summary Generic Name Dose Route Start Last Admin Trade Name Freq PRN Reason Stop Dose Admin Sodium Chloride 1,000 mls @ 999 mls/hr 07/12/23 00:05 07/12/23 00:15 Sodium Chloride 0.9% 1000 Ml IV 07/12/23 01:05 999 mls/hr .[id number] STA Administration Discontinued Medications Generic Name Dose Route Start Last Admin Trade Name Freq PRN Reason Stop Dose Admin Sodium Chloride Confirm 07/12/23 00:14 Sodium Chloride 0.9% 1000 Ml Administered 07/12/23 00:15 Dose 1,000 mls @ ud .ROUTE .STK-MED ONE Lab/Rad Data: Laboratory Result Diagrams 07/12/23 00:13 07/12/23 00:13 Laboratory Results 07/12/23 07/12/23 07/12/23 Range/Units 00:48 00:13 00:13 WBC 4.7 (4.0-10.5) x10^3/uL RBC 4.19 (4.1-5.4) x10^6/uL Hgb 13.2 (12.0-16.0) g/dL Hct 41.4 (35-47) % MCV 98.8 (78-100) fL MCH 31.5 (26-32) pg MCHC 31.9 L (32-36) g/dL RDW 12.0 (11.5-14.0) % Plt Count 229 (150-450) x10^3/uL MPV 9.9 (7.5-11.0) fL Gran % 50.2 (36.0-66.0) % Immature Gran % (Auto) 0.2 (0.00-0.4) % Nucleat RBC Rel Count 0.0 (0.00-0.1) % Eos # (Auto) 0.08 (0-0.5) x10^3/uL Immature Gran # (Auto) 0.01 (0.00-0.03) x10^3u/L Absolute Lymphs (auto) 1.87 (1.0-4.6) x10^3/uL Absolute Monos (auto) 0.34 (0.0-1.3) x10^3/uL Absolute Nucleated RBC 0.00 (0.00-0.01) x10^3u/L Lymphocytes % 40.0 (24.0-44.0) % Monocytes % 7.3 (0.0-12.0) % Eosinophils % 1.7 (0.00-5.0) % Basophils % 0.6 (0.0-0.4) % Absolute Granulocytes 2.35 (1.4-6.9) x10^3/uL Basophils # 0.03 (0-0.4) x10^3/uL Sodium 139 (137-145) mmol/L Potassium 4.0 (3.5-5.1) mmol/L Chloride 103 (98-107) mmol/L Carbon Dioxide 27 (22-30) mmol/L Anion Gap 12.7 (5-15) MEQ/L BUN 15 (7-17) mg/dL Creatinine 0.65 (0.52-1.04) mg/dL Estimated GFR > 60.0 ML/MIN Glucose 77 (74-106) mg/dL Calcium 8.6 (8.4-10.2) mg/dL Total Bilirubin 0.50 (0.2-1.3) mg/dL AST 33 (14-36) U/L ALT 28 (0-35) U/L Alkaline Phosphatase 42 (38-126) U/L Serum Total Protein 6.9 (6.3-8.2) g/dL Albumin 4.0 (3.5-5.0) g/dL Urine Color (Yellow) Urine Appearance (Clear) Urine pH (4.6-8.0) Ur Specific [place] (1.005-1.030) Urine Protein (Negative) Urine Glucose (UA) (Negative) mg/dL Urine Ketones (Negative) Urine Blood (Negative) Urine Nitrite (Negative) Urine Bilirubin (Negative) Urine Urobilinogen (0.2) mg/dL Ur Leukocyte Esterase (Negative) U Hyaline Cast (Auto) (0-2) /LPF Urine Microscopic RBC (0-5) /HPF Urine Microscopic WBC (0-5) /HPF Ur Epithelial Cells (None Seen) /HPF Urine Bacteria (None Seen) /HPF Urine Culture Reflexed (NO) Urine HCG, Qual NEGATIVE (NEGATIVE) 07/12/23 Range/Units 00:13 WBC (4.0-10.5) x10^3/uL RBC (4.1-5.4) x10^6/uL Hgb (12.0-16.0) g/dL Hct (35-47) % MCV (78-100) fL MCH (26-32) pg MCHC (32-36) g/dL RDW (11.5-14.0) % Plt Count (150-450) x10^3/uL MPV (7.5-11.0) fL Gran % (36.0-66.0) % Immature Gran % (Auto) (0.00-0.4) % Nucleat RBC Rel Count (0.00-0.1) % Eos # (Auto) (0-0.5) x10^3/uL Immature Gran # (Auto) (0.00-0.03) x10^3u/L Absolute Lymphs (auto) (1.0-4.6) x10^3/uL Absolute Monos (auto) (0.0-1.3) x10^3/uL Absolute Nucleated RBC (0.00-0.01) x10^3u/L Lymphocytes % (24.0-44.0) % Monocytes % (0.0-12.0) % Eosinophils % (0.00-5.0) % Basophils % (0.0-0.4) % Absolute Granulocytes (1.4-6.9) x10^3/uL Basophils # (0-0.4) x10^3/uL Sodium (137-145) mmol/L Potassium (3.5-5.1) mmol/L Chloride (98-107) mmol/L Carbon Dioxide (22-30) mmol/L Anion Gap (5-15) MEQ/L BUN (7-17) mg/dL Creatinine (0.52-1.04) mg/dL Estimated GFR ML/MIN Glucose (74-106) mg/dL Calcium (8.4-10.2) mg/dL Total Bilirubin (0.2-1.3) mg/dL AST (14-36) U/L ALT (0-35) U/L Alkaline Phosphatase (38-126) U/L Serum Total Protein (6.3-8.2) g/dL Albumin (3.5-5.0) g/dL Urine Color Yellow (Yellow) Urine Appearance Clear (Clear) Urine pH 7.5 (4.6-8.0) Ur Specific [place] 1.010 (1.005-1.030) Urine Protein Negative (Negative) Urine Glucose (UA) Negative (Negative) mg/dL Urine Ketones Negative (Negative) Urine Blood Negative (Negative) Urine Nitrite Negative (Negative) Urine Bilirubin Negative (Negative) Urine Urobilinogen 0.2 (0.2) mg/dL Ur Leukocyte Esterase Negative (Negative) U Hyaline Cast (Auto) NONE SEEN (0-2) /LPF Urine Microscopic RBC 0-2 (0-5) /HPF Urine Microscopic WBC 0-2 (0-5) /HPF Ur Epithelial Cells None Seen (None Seen) /HPF Urine Bacteria None Seen (None Seen) /HPF Urine Culture Reflexed NO (NO) Urine HCG, Qual (NEGATIVE) - Progress Progress: improved, re-examined Progress Note: 07/12/23 00:18 This patient's medical issue is 1 of moderate complexity. The level complexity in the work-up performed is based on review of the patient's past medical history, review of the patient's medication list, review the patient's drug bear rgy list, history of present illness and physical findings on examination. The work-up includes placement of an intravenous line, infusion of 1 L normal saline solution, CBC, CMP, urinalysis, lactic acid level and urine triage. 07/12/23 01:03 This patient's work-up results were reviewed by me. There is no evidence of sepsis or other sites of infection other than her dental infection. Patient se ems lethargic to me. What we can do is provide her with a dose of intravenous Toradol. I will discuss this with her. Counseled pt/family regarding: lab results, diagnosis, need for follow-up Medical Desision Making - Independent Historian Additional History obtained from: Spouse - Diagnostic Testing Diagnostic test were ordered, analyzed, and reviewed by me: Yes - Risk of complications The pt has a mod risk of morbidity or mortality based on: Need for prescription drug management - Departure Departure Disposition: Home Clinical Impression: Dental infection, Rash and nonspecific skin eruption Condition: Stable Critical Care Time: No Referrals: DOCTOR,NO FAMILY [Primary Care Provider] - Follow up/PCP as directed Additional Instructions: Keep the rash site clean with soap and water daily. Take your medications as prescribed. Continue your antibiotics as prescribed. Follow-up with a dentist for definitive care of your dental infection. Prescriptions: Prednisone 10 mg [Deltasone 10 mg] 10 mg PO TID #12 tablet
[2023-07-11 23:56] VITALS: RESP 18; TEMP 97.4; O2SAT 100
[2023-07-12] MEDS ORDERED: Sodium Chloride 0.9% 1000 ML 1,000 ML IV STA (00:05)
[2023-07-12] MEDS ORDERED: Sodium Chloride 0.9% 1000 ML 1,000 ML ONE (00:14)
[2023-07-12 00:38] LABS: Absolute Neutrophil Ct (ANC) 2.35 x10^3/uL (1.4-6.9); BASOPHIL % 0.6 % (0.0-0.4); Basophil (Absolute #) 0.03 x10^3/uL (0-0.4); Eosinophil % 1.7 % (0.00-5.0); Eosinophil (Absolute #) 0.08 x10^3/uL (0-0.5); Hematocrit 41.4 % (35-47); Hemoglobin 13.2 g/dL (12.0-16.0); IMMATURE GRAN # 0.01 x10^3u/L (0.00-0.03); IMMATURE GRAN % 0.2 % (0.00-0.4); Lymphocyte (Absolute #) 1.87 x10^3/uL (1.0-4.6); Mean Cell Volume 98.8 fL (78-100); Mean Corpuscular Hemoglobin 31.5 pg (26-32); Mean Corpuscular Hgb Concent. 31.9 g/dL (32-36); Mean Platelet Volume 9.9 fL (7.5-11.0); Monocyte (Absolute #) 0.34 x10^3/uL (0.0-1.3); Monocytes % 7.3 % (0.0-12.0); Neutrophil % 50.2 % (36.0-66.0); Platelet Count 229 x10^3/uL (150-450); Red Blood Count 4.19 x10^6/uL (4.1-5.4); White Blood Count 4.7 x10^3/uL (4.0-10.5)
[2023-07-12 00:51] LABS: ALKALINE PHOSPHATASE 42 U/L (38-126); ANION GAP 12.7 MEQ/L (5-15); BLOOD UREA NITROGEN 15 mg/dL (7-17); CHLORIDE 103 mmol/L (98-107); Calcium 8.6 mg/dL (8.4-10.2); Carbon Dioxide 27 mmol/L (22-30); Creatinine 1 0.65 mg/dL (0.52-1.04); EST GLOMERULAR FILTRATION RATE > 60.0 ML/MIN; Glucose 77 mg/dL (74-106); SGOT/AST 33 U/L (14-36); SGPT/ALT 28 U/L (0-35); SODIUM 139 mmol/L (137-145); Total Protein 6.9 g/dL (6.3-8.2)
[2023-07-12 00:55] LABS: HCG URINE TEST NEGATIVE (NEGATIVE)
[2023-07-12 00:59] LABS: Appearance Clear (Clear); Bacteria None Seen /HPF (None Seen); Bilirubin Negative (Negative); Blood Negative (Negative); Epithelial Cells None Seen /HPF (None Seen); Glucose, Urine Negative (Negative); Hyaline Casts NONE SEEN /LPF (0-2); Ketones Negative (Negative); Leukocyte Esterase Negative (Negative); Nitrite Negative (Negative); Ph 7.5 (4.6-8.0); Protein,Urine Dip Negative (Negative); RBC 0-2 /HPF (0-5); Urobilinogen 0.2 mg/dL (0.2); WBC 0-2 /HPF (0-5)
[2023-07-12 01:00] LABS: ADD URINE CULTURE? NO (NO)
[2023-07-12] MEDS ORDERED: TORAdol 30 mg Injection IV ONE (01:06)
[2023-07-12] MEDS ORDERED: TORAdol 30 mg Injection ONE (01:11)
[2023-07-12 01:22] VITALS: BP 95/59; PULSE 77
[2023-07-12 01:33] LABS: Amphetamine,Urine POSITIVE (NEGATIVE); Barbiturate,Urine NEGATIVE (NEGATIVE); Benzodiazepine,Urine POSITIVE (NEGATIVE); Cocaine,Urine NEGATIVE (NEGATIVE); Methadone,Urine NEGATIVE (NEGATIVE); Opiate,Urine NEGATIVE (NEGATIVE); PCP,Urine NEGATIVE (NEGATIVE); THC,Urine POSITIVE (NEGATIVE)
== END 2023-07-12 01:33 | disposition home or self-care (01) ==
LOC: ED 23:34
DX: K04.7 Periapical abscess without sinus (principal); R21 Rash and other nonspecific skin eruption; R53.1 Weakness; Z79.891 Long term (current) use of opiate analgesic; Z79.52 Long term (current) use of systemic steroids; Z28.310 Unvaccinated for COVID-19
CPT/HCPCS: 36000; 36415; 80053; 80307; 81001; 81025; 85025; 96360; 96374; 99284; J1885